=== PATIENT | female | born 1950 | race Caucasian/White ===

== ENCOUNTER 2019-04-08 07:30 | Inpatient (IN) | payer MEDICARE, OTHER ==
--- NOTE | 2019-04-06 04:04 | HP ---
PREOPERATIVE HISTORY AND PHYSICAL: DATE OF ADMISSION/SURGERY: 04/24/19 DATE OF OFFICE VISIT: 03/31/19 ATTENDING SURGEON: Dr. Antonio Gupta.* (DICTATED BY GREG OGDEN) PROCEDURE: Left total shoulder reverse versus total shoulder replacement. CHIEF COMPLAINT: Left shoulder pain. HISTORY OF PRESENT ILLNESS: Merline is a 68-year-old female, who presents to the clinic for left shoulder pain due to glenohumeral joint osteoarthritis. She has failed conservative measures and therefore agreed to undergo a left total shoulder reverse versus total shoulder replacement with Dr. Gupta on 04/24/19. PAST MEDICAL HISTORY: Hypothyroidism that has resolved. PAST SURGICAL HISTORY: Appendectomy, carpal tunnel bilaterally. The patient denies prior complications with anesthesia. MEDICATIONS: 1. Tylenol No. 3, 300/30 one every 8 hours as needed. 2. Alendronate sodium 70 mg 1 by mouth weekly. 3. Multivitamin 1 by mouth every day. ALLERGIES: TRAMADOL, CYCLOBENZAPRINE, and MELOXICAM. FAMILY HISTORY: Positive for hypertension, diabetes, and heart disease. Denies family history of DVT or PE. SOCIAL HISTORY: She is . 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 She denies illegal drug use or smoking. She reports rare alcohol consumption. She is right-hand dominant. REVIEW OF SYSTEMS: A 14-point review of systems was reviewed with the patient. Positive for recent elbow pain and current complaint, otherwise negative. Denies fever, chills, chest pain, shortness of breath, history of bleeding disorder, history of DVT or PE. PHYSICAL EXAMINATION GENERAL: A 68-year-old well-developed, well-nourished female, in no acute distress. Alert and oriented x3. Appropriate mood and affect. Appropriate balance and coordination of the upper extremities. MUSCULOSKELETAL: Left upper extremity: Skin is intact. Tenderness over the anterior joint line. Forward flexion to 170, abduction to 160, external rotation to 70 with a lot of pain, internal rotation to the lumbar spine. +4/5 strength to rotator cuff testing with discomfort. Positive impingement, Speed, [place], [place]. +2 radial pulse. Sensation intact to light touch distally. DIAGNOSTIC STUDIES: MRI of the left shoulder revealed degenerative changes of the glenohumeral joint with osteophyte formation and fluid around the biceps tendon sheath. The rotator cuff appeared intact. IMPRESSION: Left shoulder glenohumeral joint osteoarthritis. PLAN: The patient is scheduled to undergo a left total shoulder reverse versus total shoulder replacement with Dr. Gupta on 04/24/19. She is having dental work soon, so the surgery was rescheduled on 04/24/19. Dr. Gupta is requesting a CT of the left shoulder without contrast for preoperative planning. Percocet will be used for postop pain management. Cyclobenzaprine will be avoided because it causes the patient nausea. She will follow up 10 to 14 days postop for followup and suture removal. GREG OGDEN [id number]/[facility] #: [id number] MTDLitzy
[2019-04-23] MEDS ORDERED: Buffered Lidocaine 1% SYRIN* 1 ML/SYRINGE INTRADERM ONE (14:17)
[2019-04-24] MEDS ORDERED: Lactated Ringers 1000 ML Bag* 1,000 ML IV SCH ×2 (06:00→12:00)
[2019-04-24] MEDS ORDERED: Famotidine IV* 10 MG/ML 2 ML (20 mg) IV ONE (06:00)
[2019-04-24] MEDS ORDERED: Gabapentin CAP(*) 300 MG PO ONE (06:00)
[2019-04-24] MEDS ORDERED: Famotidine IV* 10 MG/ML 2 ML (20 mg) ONE (06:43)
[2019-04-24] MEDS ORDERED: ceFAZolin 2 GM in NS PREMIX(*) 2 GM/100 ML BAG IVPB ONE (06:43)
[2019-04-24] MEDS ORDERED: Gabapentin CAP(*) 300 MG ONE (06:43)
[2019-04-24] MEDS ORDERED: ROPIVACAINE 5 MG/ML 30 ML BTL (0.5%) ONE (08:17)
[2019-04-24] MEDS ORDERED: Lidocaine 1% MPF ** 5 ML VIAL ONE (08:17)
[2019-04-24] MEDS ORDERED: Scopolamine 1.5 mg* PATCH ONE (08:23)
[2019-04-24] MEDS ORDERED: Midazolam* 1 MG/ML 5 ML VIAL (5 MG) ONE (08:26)
[2019-04-24] MEDS ORDERED: KETAMINE HCL* 50 MG/ML 10 ML VIAL ONE (09:02)
[2019-04-24] MEDS ORDERED: fentaNYL* 50 MCG/ML 2 ML VIAL (100 MCG VIAL) ONE (09:11)
[2019-04-24] MEDS ORDERED: EPHEDrine (Pressors)* 50 MG/ML VIAL ONE (09:26)
[2019-04-24] MEDS ORDERED: Succinylcholine* 20 MG/ML 10 ML VIAL ONE (09:31)
[2019-04-24] MEDS ORDERED: Ketorolac INJ* 30 MG/ML 1 ML VIAL ONE (09:31)
[2019-04-24] MEDS ORDERED: Propofol* 10 MG/ML 20 ML BTL ONE (09:31)
[2019-04-24] MEDS ORDERED: DiMENhydriNATE IV* 50 MG/ML VIAL ONE (09:31)
[2019-04-24] MEDS ORDERED: Dexamethasone IV* 4 MG/ML 1 ML (4 MG) ONE (09:31)
[2019-04-24] MEDS ORDERED: Ondansetron INJ* 2 MG/ML VIAL ONE (09:31)
[2019-04-24] MEDS ORDERED: Lidocaine 2% PF * 5 ML VIAL ONE (09:32)
[2019-04-24] MEDS ORDERED: oxyCODONE TAB* 5 MG TAB PO PRN (09:35)
[2019-04-24] MEDS ORDERED: DiMENhydriNATE IV* 50 MG/ML VIAL IV PUSH PRN (09:35)
[2019-04-24] MEDS ORDERED: Acetaminophen TAB* 325 MG PO PRN ×2 (09:35→11:13)
[2019-04-24] MEDS ORDERED: Naloxone* 0.4 MG/ML 1 ML VIAL IV PRN (09:35)
[2019-04-24] MEDS ORDERED: Gabapentin CAP(*) 100 MG PO ONE (09:37)
[2019-04-24] MEDS ORDERED: Scopolamine 1.5 mg* PATCH TRANSDERM SCH (10:00)
[2019-04-24] MEDS ORDERED: oxyCODONE/Acetamin 5/325 MG* TAB PO PRN (11:07)
[2019-04-24] MEDS ORDERED: Ondansetron ODT TAB* 4 MG PO PRN (11:07)
[2019-04-24] MEDS ORDERED: Ondansetron INJ* 2 MG/ML VIAL IV PRN (11:07)
[2019-04-24] MEDS ORDERED: diPHENhydraMINE PO* 25 MG PO PRN (11:07)
[2019-04-24] MEDS ORDERED: Magnesium Hydroxide LIQ* 30 ML UDC PO PRN (11:07)
[2019-04-24] MEDS ORDERED: diPHENhydraMINE IV* 50 MG/ML 1 ml VIAL (BENADRYL) IV PRN (11:07)
[2019-04-24] MEDS ORDERED: Ketorolac INJ* 30 MG/ML 1 ML VIAL IV PRN (11:13)
[2019-04-24] MEDS ORDERED: Temazepam CAP* 15 MG PO PRN (11:13)
--- NOTE | 2019-04-24 15:58 | PN ---
Progress Note - Progress Note Date of Service: 04/24/19 Note: Pt seen and examined around 2:30 PM. Doing well. at bedside. Sling in place. No pain as block is working well. Temp Pulse Resp BP Pulse Ox 97.6 F 71 16 109/60 99 04/24/19 15:50 04/24/19 15:50 04/24/19 15:50 04/24/19 15:50 04/24/19 15:50 NAD. AAOx3. LUE: dressing and sling in place. able to flex/ext digits. diminished sensation due to block. brisk cap refill. A/P POD#0 from L shoulder reverse doing well analgesia sling for 6 weeks NWB- PT/OT PROM ff 90 abd 90 ER 45 dvt ppx lovenox while in house but home without post op xrays acceptable will see at post op visit,
[2019-04-24] MEDS: ceFAZolin 1 GM ADVAN(*) 1 GM in NS 0.9% 50 ML* 50 ML IVPB SCH (16:58)
[2019-04-24] MEDS: oxyCODONE/Acetamin 5/325 MG* TAB PO PRN (19:50)
[2019-04-24] MEDS: Docusate CAP* 100 MG PO SCH (19:50)
[2019-04-24] MEDS: Magnesium Hydroxide LIQ* 30 ML UDC PO SCH (19:50)
[2019-04-25] MEDS: oxyCODONE/Acetamin 5/325 MG* TAB PO PRN ×3 (00:04→12:57)
[2019-04-25] MEDS: ceFAZolin 1 GM ADVAN(*) 1 GM in NS 0.9% 50 ML* 50 ML IVPB SCH ×2 (01:08→07:55)
[2019-04-25] MEDS: Morphine INJ* 2 MG/ML 1 ML SYRINGE (TWO MG - NEW SYRINGE VERSION) IV PRN ×2 (01:12→04:23)
[2019-04-25] MEDS ORDERED: NS 0.9% 50 ML* 50 ML ONE (01:12)
[2019-04-25] MEDS: Cyclobenzaprine TAB* 10 MG PO PRN ×2 (02:48→12:57)
--- NOTE | 2019-04-25 02:55 | OP ---
DATE OF OPERATION: 04/24/19 - ROOM #343 DATE OF : 48 SURGEON: Antonio Gupta MD ASSISTANTS: 1. GREG Juares 2. Ana Malone. ANESTHESIOLOGIST: Dr. Borrego. ANESTHESIA: General interscalene block. PRE-OP DIAGNOSIS: Left shoulder end stage glenohumeral arthritis with rotator cuff partial tearing. POST-OP DIAGNOSIS: Left shoulder end stage glenohumeral arthritis with rotator cuff partial tearing. OPERATIVE PROCEDURE: Left shoulder reverse arthroplasty and open biceps tenodesis. COMPLICATIONS: None. BLOOD LOSS: About 100. IMPLANTS USED: Tornier Aequalis Reversed II thread post baseplate 25 x 25, standard glenosphere size 36, a size 4B Aequalis Ascend Flex stem with a standard reverse tray and +6 poly. OUTPUT: Drain x1. INDICATIONS: Merline Syed is a 68-year-old female with end-stage arthritis of left shoulder. She has failed conservative management and elected to proceed with surgical treatment. Her range of motion was quite full with forward flexion to about 80 and external rotation to about 30. I suspect that she may be a candidate for anatomic shoulder versus reverse. After extensive discussion about the risks and benefits of operative versus nonoperative treatment, she has elected to proceed with surgical treatment. Risks include, but not limited to bleeding, infection; damage to nerves, vessels, surrounding structures; wound nonhealing, persistent pain, need for surgery, scarring, stiffness, incomplete relief of symptoms, risks of anesthesia. DESCRIPTION OF PROCEDURE: The patient was greeted in the preoperative area by the attending surgeon. Correct extremity was marked and consent was confirmed. She underwent interscalene nerve block after which she was brought back to the operating suite, she was placed in supine position on the operating table, and then underwent general anesthesia, endotracheal intubation, after which she was positioned in a lazy beach chair position. The left shoulder was then prepped and draped in usual sterile fashion beginning with chlorhexidine soap, scrub, and alcohol wipe, and a final prep with ChloraPrep. After appropriate surgical pause indicating side, site, procedure, and administration of antibiotics, the deltopectoral interval was then made sharply with a 15 blade. Soft tissues were carefully dissected to expose the deltopectoral interval. There was abundant scar tissue that was present. Clavipectoral fascia was identified and then excised, the lateral aspect of the coracoid was identified and CA ligament was released. The proximal 1 to 2 cm of the pec was released and the biceps was very tendinopathic and synovitic, was then tenodesed using a heavy nonabsorbable suture, tenotomized proximal to that and followed to expose the shoulder. There is abundant synovitis and ganglion, it is along the tendon itself. The subscap was then carefully removed in subscap-peel type fashion. This was then tagged with #5 Ethibond suture. The subscap was carefully released and the inferior aspect of the shoulder was exposed and there were osteophytes that were present. There was grade IV changes. The osteotome was used to remove the large osteophyte to expose the anatomic neck. The supraspinatus appeared to be intact, but has some evidence of partial tearing, there was interstitial tearing that was present as well. Because of the patient's poor motion even under anesthesia, decision was made to proceed with a reverse as I was only able to externally rotate her about 30 and forward flex to about 110 passively, but active flexion was limited to about 90. Once the hemostasis was obtained and the head was dislocated and exposed, the longitudinal cut was then made using the sagittal saw. The canal prep then began first with starting all and then broaching began with retroversion set to 30 degrees. The size 4 was found to be appropriate fit and a protection plate was placed, after which attention was directed to the glenoid. There were some arthritic changes well to the glenoid , not as severe as in the humeral head, and possible grade 3 changes. The superior, anterior, posterior labrum were removed using electrocautery device. Superior middle and inferior glenohumeral ligaments were carefully released to allow for mobilization of subscap. Inferiorly, the labrum was then released carefully and a sheath to prevent any damage to the neurovascular structures. Once it is released, a guidewire was then placed in the inferior aspect of the glenoid centrally. The size 25 base reamer was used to ream the glenoid. A size 36 footprint reamer was then used to hand ream. The glenosphere area of 36 mm, an 8 mm cannulated drill was then used to drill and then a 6.5 mm was measured and a size 25 mm baseplate was chosen. The screw hole was then tapped and the baseplate was placed with good purchase. Three interlocking screws were then placed for added fixation to the bone with excellent purchase. The glenosphere was then placed and packed into position and secured with a set screw. Attention was directed to the humerus and the humerus was brought to the wound. A size 4 was found to be appropriate. The size standard trial was then chosen. Once the shoulder was reduced, she was found to have good motion with forward flexion of 150, abduction of 90, external rotation of about 65 or 70, appropriate shock. The final implants were then chosen and prepared in the back table by the attending surgeon. Two interosseous drill tunnels were then made and #5 Ethibond sutures were passed for later subscap closure. The final implants were then packed into position and the shoulder was then reduced, taken through the same range of motion. The wounds were then copiously irrigated with sterile saline. The subscap was then closed with the previously passed sutures in a horizontal mattress configuration. Wounds were irrigated again, an intraarticular drain was placed, wounds were irrigated again and deltopectoral interval was closed with #2 Ethibond in an interrupted fashion. The wounds were irrigated again, the skin was closed in layers with 3-0 Monocryl for subcu and 3-0 Monocryl for running. Sterile dressings were applied. A Cryo/Cuff and UltraSling were applied. She was awoken from anesthesia and transferred to the PACU in stable condition. POSTOPERATIVE PLAN: She will be admitted overnight for observation and be discharged. She will receive 24 hours of postoperative antibiotics. She will be discharged on pain medications. DVT prophylaxis will be Lovenox while she is in- house, she will not need anything once she goes home. Drain will be discontinued on postop day #1. I will see the patient back in 10 to 14 days after surgery. Postop x-rays were visualized and found to be acceptable. We will continue to follow the patient in the hospital. [id number]/[facility] #: [id number] BAILEY
[2019-04-25] MEDS ORDERED: HYDROmorphone INJ* 0.5 MG/0.5 ML SYRINGE IV ONE (04:50)
[2019-04-25] MEDS ORDERED: HYDROmorphone INJ* 0.5 MG/0.5 ML SYRINGE ONE (04:57)
[2019-04-25 05:52] LABS: Hematocrit 32 % (35-47); Hemoglobin 10.9 g/dL (12.0-16.0); Mean Platelet Volume 9.3 fL (7.4-10.4); Platelet Count 194 10^3/uL (150-450)
[2019-04-25 06:14] LABS: BUN/Creatinine Ratio 22.7 (8-20); Calcium 8.7 mg/dL (8.6-10.3); EGFR African American 77.1 (>60); EGFR Non-African American 63.7 (>60); Potassium 3.9 mmol/L (3.5-5.0)
[2019-04-25] MEDS: Docusate CAP* 100 MG PO SCH (07:53)
[2019-04-25] MEDS: Magnesium Hydroxide LIQ* 30 ML UDC PO SCH (07:54)
[2019-04-25] MEDS ORDERED: Vitamin THERAPEUTIC TAB PO SCH (09:00)
--- NOTE | 2019-04-25 11:53 | PN ---
Progress Note - Progress Note Date of Service: 04/25/19 SOAP: Subjective: [Pt reports pain better managed at this time. Dilaudid early this morning helped. Feels ready to do home. Denies CP, SOB, dizziness, numbness/tingling L UE] Objective: [A and O x 3, NAD L shoulder dressing C/D/I. A and O No swelling in L hand. Good movement in fingers, wrist. NV function intact to L UE Vital Signs: Temp Pulse Resp BP Pulse Ox 98.8 F 74 18 137/67 94 04/25/19 08:38 04/25/19 08:38 04/25/19 08:38 04/25/19 08:38 04/25/19 08:38 Laboratory Results - last 24 hr 04/25/19 04/25/19 05:01 05:01 Hgb 10.9 L Hct 32 L Plt Count 194 MPV 9.3 Sodium 138 Potassium 3.9 Chloride 102 Carbon Dioxide 28 Anion Gap 8 BUN 20 Creatinine 0.88 Est GFR ( Amer) 77.1 Est GFR (Non-Af Amer) 63.7 BUN/Creatinine Ratio 22.7 H Glucose 128 H Calcium 8.7 ] Assessment: [s/p L reverse TSA POD #1] Plan: [D/C home Percocet and Toradol for pain management F/U with Dr. Gupta in 2 weeks]
[2019-04-25 11:54] VITALS: BP 130/65
[2019-04-25] MEDS ORDERED: Enoxaparin(*) 40 MG/0.4 ML SYR SUBCUT SCH (12:00)
--- NOTE | 2019-04-25 21:32 | DS ---
AMENDED REPORT NOW INCLUDES DESIGNATED COSIGNER DISCHARGE SUMMARY: DATE OF ADMISSION: 04/24/19 DATE OF DISCHARGE: 04/25/19 ADMITTING PHYSICIAN: Dr. Gupta.* (DICTATED BY GREG KWOK) ADMITTING DIAGNOSIS: Left shoulder glenohumeral joint osteoarthritis. DISCHARGE DIAGNOSIS: Status post left total shoulder reverse and open biceps tenodesis. PROCEDURE: Left total shoulder reverse and open biceps tenodesis. CONSULTANTS: Physical Therapy. BRIEF HISTORY: Ms. Syed is a 68-year-old female with severe degenerative osteoarthritis of her left shoulder glenohumeral joint. She failed conservative treatment measures and elected to undergo a left shoulder reverse replacement with Dr. Gupta on 04/24/19. HOSPITAL COURSE: Ms. Syed was admitted to [facility] on . She underwent an uncomplicated left total shoulder reverse with open biceps tenodesis. Postoperatively, she recovered on the short stay surgical unit. Her Vazquez catheter was removed on postoperative day 1. Her Hemovac drain was removed on postoperative day 1. She advanced to a regular diet without difficulty. She had some pain issues during the evening of postoperative day 1 and was prescribed a 1 time dose of Dilaudid in addition to her regularly prescribed Percocet and morphine that seem to control the pain well. On postoperative day 2, her pain was much better managed with p.o. Percocet. Her vital signs and labs remain stable. She received DVT prophylaxis , Lovenox, during her hospital stay. By postoperative day #1, she was orthopedically and medically stable for discharge home. PHYSICAL EXAMINATION: General: On examination, the patient is noted to be calm and cooperative, in no acute distress. She is alert and oriented x3. Vital Signs: On day of discharge, temperature 98.7 degrees Fahrenheit, heart rate 71, respiratory rate 15, O2 sat 96% on room air, blood pressure 130/65. Extremities: Examination of her left upper extremity demonstrates a dressing overlying the left shoulder, which is clean, dry, and intact. There is no swelling visible in her distal arm or fingers. She has good motion in her fingers and her wrist and her elbow. Distally, she has +2 palpable radial pulse and full motion in her wrist and fingers. Sensation is intact to light touch. DIAGNOSTIC STUDIES/LAB DATA: Postoperative radiographs of the left shoulder demonstrate a left total shoulder reverse replacement with satisfactory prosthesis placement and no acute abnormalities. DISCHARGE MEDICATIONS: 1. Alendronate sodium 70 mg daily. 2. Multivitamin 1 tab daily. 3. Percocet 5/325 1 to 2 tabs q.4 to 6 hours p.r.n. pain. 4. Toradol 10 mg 1 tab q.6 hours p.r.n. pain. CONDITION ON DISCHARGE: Stable. DISCHARGE INSTRUCTIONS: Ms. Syed is a 68-year-old female postoperative day # 1 status post left total shoulder reverse replacement which was uncomplicated. She is orthopedically and medically stable to be discharged home. She has stable vital signs and labs. She will remain in the sling until she follows up with Dr. Gupta at which time, she will also start physical therapy. She will use Percocet and Toradol for pain control. She will follow up with Dr. Gupta in 10 to 14 days for incision check and suture removal. She was instructed to call Dr. Lisa or go immediately to the ER should she develop any new fevers, chills, incision pain, redness, or drainage. She was instructed to go immediately to the ER should she develop chest pain or shortness of breath. GREG KWOK [id number]/[facility] #: [id number] MTDLitzy
[2019-04-26] MEDS ORDERED: Bisacodyl SUPP* 10 MG SUPP PR PRN (11:08)
== END 2019-04-25 13:40 | disposition home or self-care (01) | DRG 483 ==
LOC: INTOOBSV 04-24 06:21 → AA 04-24 06:21 → SSU 04-24 11:08 → OBSVTOIN 04-24 15:57
PROVIDERS: ADMIT Orthopaedic Surgery; ATTEND Orthopaedic Surgery
PROC: 0RRK00Z Replacement of Left Shoulder Joint with Reverse Ball and Socket Synthetic Substitute, Open Approach (ICD-10-PCS; principal; 2019-04-24 08:30)
DX: M19.012 Primary osteoarthritis, left shoulder (principal); E03.9 Hypothyroidism, unspecified; M25.712 Osteophyte, left shoulder; E78.5 Hyperlipidemia, unspecified; M81.0 Age-related osteoporosis without current pathological fracture; I83.93 Asymptomatic varicose veins of bilateral lower extremities; E04.8 Other specified nontoxic goiter; M75.112 Incomplete rotator cuff tear or rupture of left shoulder, not specified as traumatic; G43.909 Migraine, unspecified, not intractable, without status migrainosus; Z88.6 Allergy status to analgesic agent; Z88.8 Allergy status to other drugs, medicaments and biological substances; Z82.49 Family history of ischemic heart disease and other diseases of the circulatory system; Z83.3 Family history of diabetes mellitus; Z82.5 Family history of asthma and other chronic lower respiratory diseases
CPT/HCPCS: 36415; 80048; 85014; 85018; 85049; 88304; 88311; A9270-GY; C1713; C1776; G8978-GP-CI; G8979-GP-CH; G8987-GO-CJ; G8988-GO-CJ; G8989-GO-CJ; J0330; J0690; J1100; J1170; J1240; J1650; J1885; J2250; J2270; J2405; J2704; J2795; J3010

== ENCOUNTER 2020-04-11 15:11 | Inpatient (IN) ==
[2020-04-11] MEDS ORDERED: diPHENhydraMINE 25 mg TAB PO PRN (15:28)
[2020-04-11] MEDS ORDERED: diPHENhydraMINE IV 50 MG/ML 1 ml VIAL (BENADRYL) IV PRN (15:28)
[2020-04-11] MEDS ORDERED: Ondansetron 4 mg VIAL 2 MG/ML 2 ml VIAL IV PRN (15:28)
[2020-04-11] MEDS ORDERED: cefTRIAXone 2 GM ADDV.VIAL 2 GM in NS 0.9% 100 ml BAG 100 ML IV SCH (16:30)
[2020-04-11] MEDS ORDERED: Vancomycin 1,250 MG in NS 0.9% 250 ml 250 ML IVPB ONE (17:00)
[2020-04-11] MEDS ORDERED: Vancomycin per Pharmacy 1 EA NOTE FOLLOW UP SCH (17:00)
[2020-04-11] MEDS: cefTRIAXone 1 gm/50 mL NS BAG 1 GM/50 ML BAG IVPB SCH (17:21)
[2020-04-11 20:13] LABS: EGFR African American 92.4 (>60); EGFR Non-African American 76.4 (>60)
[2020-04-12 06:16] LABS: ABS Basophils 0.1 10^3/ul (0-0.2); ABS Eosinophils 0.2 10^3/ul (0-0.6); ABS Lymphocytes 1.1 10^3/ul (1.0-4.8); ABS Monocytes 0.7 10^3/ul (0-0.8); ABS Neutrophils 4.5 10^3/ul (1.5-7.7); Eosinophil % 2.5 %; Hematocrit 37 % (35-47); Hemoglobin 12.2 g/dL (12.0-16.0); Lymphocyte % 16.2 %; Mean Corpuscular HGB Conc 33 g/dL (31-36); Mean Corpuscular Hemoglobin 30 pg (27-31); Mean Corpuscular Volume 91 fL (80-97); Mean Platelet Volume 8.7 fL (7.4-10.4); Platelet Count 231 10^3/uL (150-450); Red Blood Count 4.05 10^6 /uL (3.70-4.87); Red Cell Distribution Width 14 % (10-15); White Blood Count 6.5 10^3/uL (3.5-10.8)
[2020-04-12] MEDS: Vancomycin 1000 MG in NS 0.9% 250 ML IVPB SCH ×2 (06:25→18:13)
[2020-04-12 06:38] LABS: BUN/Creatinine Ratio 17.1 (8-20); C Reactive Protein 42.51 mg/L (<8.01); Calcium 8.9 mg/dL (8.6-10.3); EGFR African American 100.1 (>60); EGFR Non-African American 82.7 (>60); Potassium 3.6 mmol/L (3.5-5.0)
[2020-04-12 07:49] LABS: Erythrocyte Sed Rate 26 mm/Hr (0-29)
[2020-04-12] MEDS ORDERED: Influenza VAC *QUAD* 2020-21* 0.5 ML SYRINGE IM ONE (09:00)
[2020-04-12] MEDS: Clindamycin 600 MG/D5W BAG 600 MG/50 ML BAG IV SCH ×2 (13:35→21:49)
[2020-04-12] MEDS: cefTRIAXone 1 gm/50 mL NS BAG 1 GM/50 ML BAG IVPB SCH (17:18)
[2020-04-13] MEDS: Clindamycin 600 MG/D5W BAG 600 MG/50 ML BAG IV SCH ×3 (05:07→22:56)
[2020-04-13] MEDS ORDERED: Vancomycin Trough Check NOTE FOLLOW UP ONE (05:30)
[2020-04-13 05:57] LABS: ABS Eosinophils 0.2 10^3/ul (0-0.6); ABS Monocytes 0.7 10^3/ul (0-0.8); ABS Neutrophils 4.5 10^3/ul (1.5-7.7); Eosinophil % 2.6 %; Hematocrit 34 % (35-47); Hemoglobin 11.8 g/dL (12.0-16.0); Mean Corpuscular HGB Conc 35 g/dL (31-36); Mean Corpuscular Hemoglobin 31 pg (27-31); Mean Corpuscular Volume 89 fL (80-97); Mean Platelet Volume 8.5 fL (7.4-10.4); Platelet Count 224 10^3/uL (150-450); Red Blood Count 3.77 10^6 /uL (3.70-4.87); Red Cell Distribution Width 13 % (10-15); White Blood Count 6.5 10^3/uL (3.5-10.8)
[2020-04-13] MEDS: Vancomycin 1000 MG in NS 0.9% 250 ML IVPB SCH (06:28)
[2020-04-13] MEDS: Vancomycin 750 MG in NS 0.9% 250 ml 250 ML IVPB SCH (16:13)
[2020-04-13] MEDS: cefTRIAXone 1 gm/50 mL NS BAG 1 GM/50 ML BAG IVPB SCH (18:03)
[2020-04-14] MEDS: Vancomycin 750 MG in NS 0.9% 250 ml 250 ML IVPB SCH ×4 (00:14→23:59)
[2020-04-14] MEDS: Clindamycin 600 MG/D5W BAG 600 MG/50 ML BAG IV SCH ×3 (05:24→21:19)
[2020-04-14 05:45] LABS: ABS Basophils 0.1 10^3/ul (0-0.2); ABS Eosinophils 0.2 10^3/ul (0-0.6); ABS Lymphocytes 1.3 10^3/ul (1.0-4.8); ABS Monocytes 0.5 10^3/ul (0-0.8); Eosinophil % 4.6 %; Hematocrit 34 % (35-47); Hemoglobin 11.5 g/dL (12.0-16.0); Mean Corpuscular HGB Conc 34 g/dL (31-36); Mean Corpuscular Hemoglobin 30 pg (27-31); Mean Corpuscular Volume 90 fL (80-97); Mean Platelet Volume 8.6 fL (7.4-10.4); Platelet Count 244 10^3/uL (150-450); Red Cell Distribution Width 14 % (10-15); White Blood Count 5.2 10^3/uL (3.5-10.8)
[2020-04-14 05:59] LABS: INR 1.14 (0.82-1.09)
[2020-04-14 06:01] LABS: C Reactive Protein 26.54 mg/L (<8.01); Calcium 8.7 mg/dL (8.6-10.3); EGFR Non-African American 90.1 (>60)
[2020-04-14] MEDS ORDERED: fentaNYL 100 mcg/2 ml 50 MCG/ML VIAL ONE (14:41)
[2020-04-14] MEDS ORDERED: Midazolam 2 mg/2 ml VIAL 1 mg/ml 2 ml VIAL (2 mg) ONE (14:41)
[2020-04-14] MEDS ORDERED: Bupivacaine 0.25% SDV 30 ML ONE (15:25)
[2020-04-14] MEDS ORDERED: Propofol 10 MG/ML 20 ML BTL ONE (15:48)
[2020-04-14] MEDS ORDERED: Lidocaine 2% PF 5 ML VIAL ONE (15:48)
[2020-04-14] MEDS ORDERED: Ondansetron 4 mg VIAL 2 MG/ML 2 ml VIAL ONE (15:48)
[2020-04-14] MEDS ORDERED: Dexamethasone IV 4 MG/ML VIAL 1 ml VIAL ONE (15:48)
[2020-04-14] MEDS ORDERED: Lidocaine 2% PF 10 ML AMP ONE (16:02)
[2020-04-14] MEDS ORDERED: fentaNYL 100 mcg/2 ml 50 MCG/ML VIAL IV PRN (16:12)
[2020-04-14] MEDS ORDERED: Ondansetron 4 mg VIAL 2 MG/ML 2 ml VIAL IV PRN (16:12)
[2020-04-14] MEDS ORDERED: Naloxone 0.4 mg VIAL 0.4 mg/ml 1 ml VIAL IV PRN (16:12)
[2020-04-14] MEDS ORDERED: Morphine 2 MG/ML SYRINGE IV PRN (18:17)
[2020-04-14] MEDS: cefTRIAXone 1 gm/50 mL NS BAG 1 GM/50 ML BAG IVPB SCH (20:23)
[2020-04-15] MEDS: Clindamycin 600 MG/D5W BAG 600 MG/50 ML BAG IV SCH ×2 (05:38→13:01)
[2020-04-15 06:16] LABS: ABS Lymphocytes 1.2 10^3/ul (1.0-4.8); ABS Monocytes 0.5 10^3/ul (0-0.8); ABS Neutrophils 5.4 10^3/ul (1.5-7.7); Eosinophil % 0.5 %; Hematocrit 35 % (35-47); Hemoglobin 12.3 g/dL (12.0-16.0); Lymphocyte % 16.5 %; Mean Corpuscular HGB Conc 35 g/dL (31-36); Mean Corpuscular Hemoglobin 32 pg (27-31); Mean Corpuscular Volume 89 fL (80-97); Mean Platelet Volume 8.4 fL (7.4-10.4); Platelet Count 295 10^3/uL (150-450); Red Blood Count 3.88 10^6 /uL (3.70-4.87); Red Cell Distribution Width 13 % (10-15); White Blood Count 7.2 10^3/uL (3.5-10.8)
[2020-04-15 06:32] LABS: Calcium 8.8 mg/dL (8.6-10.3); EGFR Non-African American 90.1 (>60); Potassium 4.1 mmol/L (3.5-5.0)
[2020-04-15 06:34] LABS: EGFR African American 107.1 (>60); EGFR Non-African American 88.5 (>60)
[2020-04-15 06:38] LABS: Vancomycin Trough 12.8 mcg/mL
[2020-04-15] MEDS ORDERED: Vancomycin Trough Check NOTE FOLLOW UP ONE (07:30)
[2020-04-15] MEDS: Vancomycin 750 MG in NS 0.9% 250 ml 250 ML IVPB SCH (08:00)
[2020-04-15] MEDS ORDERED: cefTRIAXone 1 gm/50 mL NS BAG 1 GM/50 ML BAG IVPB SCH (15:00)
[2020-04-15 15:29] VITALS: BP 142/78
== END 2020-04-15 15:53 | disposition home or self-care (01) | DRG 504 ==
LOC: SSU 15:37
PROVIDERS: ADMIT Orthopaedic Surgery; ATTEND Orthopaedic Surgery